=== PATIENT | female | born 1980 | race Caucasian/White ===

== ENCOUNTER 2020-04-11 08:51 | Emergency (ER) | payer OTHER, SELFPAY ==
--- NOTE | ~2020-04-11 | XR_ITS ---
EXAMINATION: XR chest 2V DATE: 04/11/2020 09:26 INDICATION: Cough TECHNIQUE: PA and lateral views of the chest are obtained. COMPARISON: None available FINDINGS: The lungs are free of acute opacities. There is no pleural effusion or pneumothorax. The he art size is normal. There is a moderate-sized sliding hiatal hernia. The visualized bones and soft ti ssues are unremarkable. IMPRESSION: 1. No acute cardiopulmonary abnormality. Reviewed, dictated and finalized at location A. [facility]
--- NOTE | 2020-04-11 08:57 | ED.URI ---
HPI - URI/Sore Throat General Chief Complaint: Upper Respiratory Infection Stated Complaint: cough/body aches/fatigue Time Seen by Provider: 04/11/20 09:05 Source: patient Mode of arrival: ambulatory Limitations: no limitations History of Present Illness HPI Narrative: 39 year old female who [facility] with complaints of cough, fatigue, chills, and sweats since last night. Patient states that she feels like she can't take a deep breath with stated history of bronchitis and tobacco use of 1/4 pack daily of cigarettes intermittently for 20 years. Patient also states that coworker is out of office and was tested for COVID with test results not back yet. Patient denies any nausea, vomiting or diarrhea, denies any known fevers, but chills and sweats. Patient has some coarse breath sounds in her lung bases which clear with cough, denies any dyspnea but states she feels like she can't take a deep breath SAO2 100% on room air, denies any recent travel, control pills or hormone use ,no history of DVT. MD elicited complaint: cough and other (fatigue, chills and sweats) Pertinent past history: other (bronchitis, feelings of fatigue ) Onset (ago): day(s) (1) Consistency: constant Severity: moderate Description of mucous: other (no stated mucous) Able to tolerate fluids by mouth: Yes Exacerbating factors: exertion and deep breaths Relieving factors: nothing Context: sick contacts Associated symptoms: chills, cough and other (fatigue) Treatments prior to arrival: none Related Data Home Medications Medication Instructions Recorded Confirmed metoprolol tartrate 50 mg PO BID 04/11/20 04/11/20 Allergies Allergy/AdvReac Type Severity Reaction Status Date / Time No Known Allergies Allergy Verified 04/11/20 09:19 Review of Systems Review of Systems: Narrative: CONSTITUTIONAL: Denies fever,positive for chills, or sweats. EYES: Denies visual changes, redness, or discharge. ENT: no noted rhinorrhea, positive nasal congestion,no sore throat, or otalgia. CARDIOVASCULAR: Denies chest pain, palpitations, or edema. RESPIRATORY: Positive cough or dyspnea. GASTROINTESTINAL: Denies abdominal pain, nausea, vomiting, or diarrhea, states frequent heartburn. GENITOURINARY: Denies dysuria or hematuria. SKIN: Denies rash or itching. MUSCULOSKELETAL: Denies back pain, joint pain,states body aches NEUROLOGIC: Denies headache, numbness, or weakness. PSYCHIATRIC: Denies anxiety or depression. All systems reviewed & are unremarkable except as noted in HPI and below PMFSH Past Medical History Medical History (Updated 04/11/20 @ 11:06 by Cheyenne Zambrano NP) Cough in adult Ectopic , tubal Heartburn Hypertension Kidney stones Surgical History Surgical History (Updated 04/11/20 @ 09:26 by Cheyenne Zambrano NP) History of excision of pilonidal cyst Hx of lithotripsy Family History Family History (Updated 04/11/20 @ 09:27 by Cheyenne Zambrano NP) Mother Breast cancer Father Non-Hodgkin lymphoma Social History Social History (Updated 04/11/20 @ 11:02 by Cheyenne Zambrano NP) Smoking packs per day: 0.25 Smoking cigarettes per day: 5.0 Years smoked: 20 Smoking pack-years: 5.00 Smoking status: Current every day smoker Tobacco type: cigarettes Alcohol intake: current Substance use: never Living arrangements: with family Gender identity (if verbalized by the patient): Female Comments At time of signature, agree with nursing past medical, surgical, social and family history. There is no relevant family history pertinent to the presenting complaint Exam Narrative: Exam Narrative: GENERAL: Well-appearing, well-nourished, and in no acute distress. HEAD: Normocephalic, atraumatic. EYES: PERRLA and EOMI. ENT: Nares light red turbinates,clear rhinorrhea post nasally, no epistaxis. Mucous membranes moist.TM's normal with brisk light reflex, throat mild redness with no exudates or lesions no tonsi
[2020-04-11 09:03] VITALS: BP 149/99; PULSE 93; RESP 18; TEMP 36.6; O2SAT 100
== END 2020-04-11 10:08 | disposition home or self-care (01) ==
PROVIDERS: Emergency Provider Registered Nurse
DX: J06.9 Acute upper respiratory infection, unspecified (principal); Z20.828 Contact with and (suspected) exposure to other viral communicable diseases; F17.210 Nicotine dependence, cigarettes, uncomplicated; I10 Essential (primary) hypertension
CPT/HCPCS: 71046; 87081; 87804; 87880; 99213; G0463